=== PATIENT | male | born 1950 | race Caucasian/White ===

== ENCOUNTER 2020-06-24 05:37 | Emergency (ER) | payer MEDICARE, BC ==
--- NOTE | 2020-06-24 06:21 | ER Document Report ---
ED Cardiac - General Chief Complaint: Chest Pain Stated Complaint: CHEST PAIN Time Seen by Provider: 06/24/20 06:14 Primary Care Provider: MIKA IVEY MD [EMERITUS] - Follow up as needed Notes: HPI: 70-year-old male who presents today recently being discharged [facility]we[facility] last week secondary to a pacemaker placed on June 11. There was supposedly some "complications" and the patient stayed there for an extended period of time. Patient states he has had some chest discomfort since leaving the hospital. Patient states it is "across my chest". He states it is constant described as pressure. He states that it got worse around 3 AM. No nausea, vomiting, or diaphoresis. No calf pain or leg swelling. No cough or fevers. EMS did provide aspirin. ROS: See HPI All other review of systems reviewed and otherwise negative Reviewed vital signs and nursing note as charted by RN. PHYSICAL EXAM: CONSTITUTIONAL: Alert and oriented and responds appropriately to questions. Well-appearing; well-nourished HEAD: Normocephalic; atraumatic NECK: Supple without meningismus; non-tender; no cervical lymphadenopathy, no masses CARD: Regular rate and rhythm; no murmurs; symmetric distal pulses RESP: Normal chest excursion without splinting or tachypnea; new pacemaker to the left chest; some bruising with no obvious erythema. No fluctuance or swelling appreciated; breath sounds clear and equal bilaterally; no wheezes, no rhonchi, no rales ABD/GI: Normal bowel sounds; non-distended; soft, non-tender; no palpable organomegaly or masses BACK: The back appears normal and is non-tender to palpation EXT: Normal ROM in all joints; non-tender to palpation; no edema SKIN: See above NEURO: CN 2-12 intact; 5/5 bilateral upper and lower extremity strength with sensation intact to light touch PSYCH: The patient's mood and manner are appropriate. Grooming and personal hygiene are appropriate. - Related Data Allergies/Adverse Reactions: Sulfa (Sulfonamide Antibiotics) Allergy (Verified 06/24/20 06:13) Past Medical History - Social History Smoking Status: Never Smoker Chew tobacco use (# tins/day): No Frequency of alcohol use: None Drug Abuse: None Family History: Reviewed & Not Pertinent Patient has homicidal ideation: No Physical Exam - Vital signs Vitals: Temp Pulse Resp BP Pulse Ox 97.6 F 61 24 H 101/51 L 100 06/24/20 05:50 06/24/20 05:50 06/24/20 05:50 06/24/20 05:50 06/24/20 05:50 Course - Re-evaluation Re-evalutation: Given the above history and physical with the initial EKG showing some ST elevation in leads I and aVL possibly some minimal reciprocal changes in aVR, we did activate a STEMI. I have no old EKG to compare. I have called immediately to [facility]. I did already speak to the transfer center and fax the EKG expeditiously. Given the patient's constant pain since discharge worsening at 3 AM, with no old EKG to compare, with a pacemaker just placed, I would like to speak directly with the research fellow who may be able to look at the patient's most recent EKG compared to the one I have faxed and determine whether or not this patient is a lytic therapy patient. 06/24/20 06:30 I called and spoke directly to the research fellow Dr. Rebolledo. He states that the patient had a left bundle branch block and there was supposedly no EKGs performed after the pacemaker was placed. He states given that the patient now has a paced rhythm he is unable to determine whether or not this is acute ST elevation myocardial infarction. He does not recommend lytics. The transfer center would like to see the initial set of cardiac labs prior to accepting the transfer. Repeat EKG shows no real appreciable changes. 06/24/20 07:03 I have spoken again with the transfer center, Dr. Rueda. He has reviewed the discharge EKG and does not see a large appreciable change. Given the patient's pain, they will accept the patient for further evaluation. Supposedly after the pacemaker was placed they were concerned given the patient's pain that was irritating his myocardium and did a lead revision. Patient was accepted by the attending Dr. Ora Uriarte. 06/24/20 07:39 Elevated white blood cell count. Labs otherwise as recorded. X-ray of the chest unremarkable. Patient's pain is improved. Blood pressure is also improved from 80 systolic to 100/65. I have placed a lidocaine transdermal patch on the patient is supposedly this provided symptom relief on his last admission. Given the vital signs, recent procedure, no real shortness of breath, good oxygenation, no radiation to the back, I do believe PE and dissection to be unlikely. Patient will be transferred to [facility] for further evaluation and treatment. - Vital Signs Vital signs: Temp Pulse Resp BP Pulse Ox 97.6 F 61 32 H 117/62 97 06/24/20 06:10 06/24/20 05:50 06/24/20 06:17 06/24/20 06:17 06/24/20 06:17 - Laboratory Result Diagrams: 06/24/20 06:10 06/24/20 06:10 Laboratory results interpreted by me: 06/24/20 06/24/20 06:10 06:10 WBC 22.2 H Band Neutrophils % 1 L Lymphocytes % (Manual) 5 L Abs Neuts (Manual) 17.5 H Abs Monocytes (Manual) 1.6 H Est GFR (MDRD) Non-Af 58 L Glucose 156 H Creatine Kinase 43 L Critical Care Note - Critical Care Note Total time excluding time spent on procedures (mins): 35 Discharge - Discharge Clinical Impression: Precordial chest pain, ST elevation Leukocytosis Qualifiers: Leukocytosis type: unspecified Qualified Code(s): D72.829 - Elevated white blood cell count, unspecified Condition: Serious Disposition: [facility] Referrals: MIKA IVEY MD [EMERITUS] - Follow up as needed
[2020-06-24 06:25] LABS: HEMATOCRIT 47.1 % (37.9-51.0); HEMOGLOBIN 16.4 g/dL (13.5-17.0); MEAN CORPUSCULAR HEMOGLOBIN 30.7 pg (27.0-33.4); MEAN CORPUSCULAR HGB CONC 34.7 g/dL (32.0-36.0); MEAN CORPUSCULAR VOLUME 88 fl (80-97); PLATELET COUNT 257 10^3/uL (150-450); RED BLOOD COUNT 5.34 10^6/uL (4.35-5.55); RED CELL DISTRIBUTION WIDTH 13.7 % (11.5-14.0); WHITE BLOOD COUNT 22.2 10^3/uL (4.0-10.5)
[2020-06-24] MEDS ORDERED: FENTANYL CITRATE INJ/PF 100 MCG/2 ML AMPUL IV ONE ×2 (06:38→08:35)
[2020-06-24 06:45] LABS: ALBUMIN 4.2 g/dL (3.5-5.0); ALKALINE PHOSPHATASE 116 U/L (38-126); ANION GAP 13 (5-19); ASPARTATE AMINO TRANSFERASE 33 U/L (17-59); BILIRUBIN,DIRECT 0.2 mg/dL (0.0-0.4); BILIRUBIN,TOTAL 1.2 mg/dL (0.2-1.3); BLOOD UREA NITROGEN 20 mg/dL (7-20); CALCIUM 9.1 mg/dL (8.4-10.2); CARBON DIOXIDE 24 mmol/L (22-30); CHLORIDE 104 mmol/L (98-107); CREATINE KINASE 43 U/L (55-170); GLUCOSE 156 mg/dL (75-110); POTASSIUM 4.7 mmol/L (3.6-5.0)
[2020-06-24 06:57] LABS: CREATINE KINASE MB 0.89 ng/mL (<4.55)
[2020-06-24 06:58] LABS: TROPONIN I < 0.012 ng/mL
[2020-06-24] MEDS ORDERED: LIDOCAINE 5% (700 MG) TRANSDERMAL ADH..PATCH TP ONE (07:03)
[2020-06-24 07:04] LABS: ABSOLUTE LYMPHOCYTES# (MANUAL) 3.1 10^3/uL (0.5-4.7); ABSOLUTE MONOCYTES # (MANUAL) 1.6 10^3/uL (0.1-1.4); BAND NEUTROPHILS % (MANUAL) 1 % (3-5); BASOPHILS % (MANUAL) 0 % (0-2); EOSINOPHILS % (MANUAL) 0 % (0-6); LYMPHOCYTES % (MANUAL) 5 % (13-45); MONOCYTES % (MANUAL) 7 % (3-13); PLATELET COMMENT ADEQUATE; RBC MORPHOLOGY COMMENT NORMO-CYTIC/CHROMIC; SEGMENTED NEUTROPHILS % (MAN) 78 % (42-78); TOTAL CELLS COUNTED 100; TOXIC GRANULATION SLIGHT
--- NOTE | 2020-06-24 07:15 | RADIOLOGY REPORT (SQ) ---
CHEST X-RAY 1 VIEW on 06/24/2020 at 6:23 AM CLINICAL INDICATION: Chest pain COMPARISON: None FINDINGS: Multilead left subclavian AICD device is noted in place. The lungs are clear. Cardiac, hilar and mediastinal contours are within normal limits. Pulmonary vascularity is within normal limits. IMPRESSION: No acute disease.
--- NOTE | 2020-06-24 08:04 | EKG REPORT ---
SEVERITY:- ABNORMAL ECG - ATRIAL-VENTRICULAR DUAL-PACED RHYTHM : Confirmed by: Martha Valladares 24-Jun-2020 08:03:48
--- NOTE | 2020-06-24 08:05 | EKG REPORT ---
SEVERITY:- ABNORMAL ECG - ATRIAL-SENSED VENTRICULAR-PACED COMPLEXES RIGHT BUNDLE BRANCH BLOCK NONSPECIFIC ST DEPRESSION, ANT-LAT LEADS : Confirmed by: Martha Valladares 24-Jun-2020 08:05:19
[2020-06-24 10:40] VITALS: BP 129/61
== END 2020-06-24 10:42 | disposition short-term general hospital (02) ==
LOC: ER 05:37
DX: R07.2 Precordial pain (principal); D72.829 Elevated white blood cell count, unspecified; R94.31 Abnormal electrocardiogram [ECG] [EKG]; Z95.0 Presence of cardiac pacemaker; Z88.2 Allergy status to sulfonamides
CPT/HCPCS: 93005; 96376; 99285; 96374; 36415; 82553; 82550; 85025; 80053; 84484; 71045; 93010; J3010; A9270